=== PATIENT | male | born 1945 | race Caucasian/White ===

== ENCOUNTER 2016-10-02 15:10 | Emergency (ER) | payer MEDICAID, OTHER ==
[~2016-10-02] VITALS: Ht 185.4 cm; Wt 103.5 kg
[~2016-10-02 15:10] MED LIST: ACET1TAB40 PO; IBUP-1542 PO; LEVO750T8 PO
[2016-10-02 15:20] VITALS: Ht 185.4 cm; Wt 103.5 kg
[2016-10-02 19:29] LABS: ADD SCAN DIFF NO
[2016-10-02 19:31] LABS: BASOPHILS % 0.4 % (0.0-2.0); EOSINOPHILS # 0.3 10^3/ul (0.0-0.5); EOSINOPHILS % 3.3 % (0.0-7.0); HEMATOCRIT 40.7 % (42.0-52.0); HEMOGLOBIN 13.5 g/dl (14.0-18.0); LYMPHOCYTES # 2.3 10^3/ul (0.8-2.9); LYMPHOCYTES % 28.7 % (15.0-51.0); MEAN CORPUSCULAR HEMOGLOBIN 31.4 pg (29.0-33.0); MEAN CORPUSCULAR HGB CONC 33.2 g/dl (32.0-37.0); MEAN CORPUSCULAR VOLUME 94.7 fl (82.0-101.0); MEAN PLATELET VOLUME 9.2 fl (7.4-10.4); MONOCYTE # 0.9 10^3/ul (0.3-0.9); MONOCYTES % 11.3 % (0.0-11.0); NEUTROPHIL # 4.6 10^3/ul (1.6-7.5); NEUTROPHILS % 55.9 % (39.0-77.0); PLATELET COUNT 247 10^3/UL (140-415); RED CELL DISTRIBUTION WIDTH 12.5 % (11.5-14.5); WHITE BLOOD COUNT 8.2 10^3/ul (4.8-10.8)
[2016-10-02 19:47] LABS: INR 0.93; PROTIME 12.5 Sec (12.2-14.2)
--- NOTE | 2016-10-02 19:47 | RADRPT ---
PROCEDURE: US bilateral lower extremity veins. CLINICAL INDICATION: Bilateral leg pain and swelling. TECHNIQUE: Multiple longitudinal and transverse images of the bilateral lower extremity veins were obtained with henry scale and color Doppler imaging. The common femoral vein, femoral vein, and popl iteal vein were evaluated. 2D grayscale measurements with compression sonography, color Doppler, and pulsed Doppler with augmentation. COMPARISON: No prior studies are available for comparison. FINDINGS: The bilateral common femoral, femoral and popliteal veins are normally compressible throughout. Col or flow demonstrates normal filling of the vessels. Normal waveforms are visualized and there is no rmal response to augmentation. IMPRESSION: 1. No evidence of deep vein thrombosis involving either lower extremity. RPTAT: QQ .Steven Forbes MD, MD Date Time Electronically viewed and signed by .Steven Forbes MD, on 10/02/2016 19:47 .R/
[2016-10-02 19:51] LABS: ALANINE AMINOTRANSFERASE 27 IU/L (13-69); ALBUMIN 4.5 g/dl (3.3-4.9); ALKALINE PHOSPHATASE 46 IU/L (42-121); ANION GAP 21 (8-16); ASPARTATE AMINO TRANSFERASE 19 IU/L (15-46); BILIRUBIN,INDIRECT 0.3 mg/dl (0-1.1); BILIRUBIN,TOTAL 0.3 mg/dl (0.2-1.3); BLOOD UREA NITROGEN 17 mg/dl (7-20); CALCIUM 9.1 mg/dl (8.4-10.2); CARBON DIOXIDE 25 mmol/L (21-31); CHLORIDE 103 mmol/L (97-110); CREATININE 0.86 mg/dl (0.61-1.24); GLUCOSE 81 mg/dl (70-220); POTASSIUM 4.2 mmol/L (3.5-5.1); SODIUM 145 mmol/L (135-144); TOTAL PROTEIN 7.5 g/dl (6.1-8.1)
[2016-10-02 19:59] LABS: B-TYPE NATRIURETIC PEPTIDE 112 PG/ML (0-125)
[2016-10-02 20:09] LABS: TROPONIN-I < 0.012 ng/ml (0.00-0.12)
[2016-10-02 20:17] LABS: PARTIAL THROMBOPLASTIN TIME 26.7 Sec (25.0-35.0)
[2016-10-02 20:24] VITALS: BP 118/80
[2016-10-02] MEDS ORDERED: CEPH-443 PO (20:40)
[2016-10-02] MEDS ORDERED: BACTRIM PO (20:40)
--- NOTE | 2016-10-02 21:56 | ERD ---
ER Documentation Chief Complaint Date/Time DATE: 10/02/16 TIME: 21:49 Chief Complaint BILATERAL LOWER EXTREMITIES SWELLIING HPI This is a very pleasant 70-year-old male with a known history of COPD quit tobacco 2 years prior to arrival, presented to the emergency department with 8 days of lower extremity swelling. Indicates he has not had any recent travel or prolonged immobilization. He indicates he has shortness of breath with exertion but also indicates this is been present for several years due to his COPD and does not feel different in nature from his normal shortness of breath. He indicates the swelling of his lower extremities is worse at the end of the day and he will notice his sock duran indented on his lower extremities. He denies any muscular cramping or tenderness of his calves. He has no chest pain or pressure that radiates to the neck arm back or jaw. He denies any recent hospitalizations. The patient also is concerned that he could have an infection of his foot on the left-hand side as he went to a nail salon and he feels that they did not use sterile instruments. He did notice some redness after the pedicure over the left big toe which began 2 days ago. He has had no fevers or shaking or chills ROS All systems reviewed and are negative except as per history of present illness. Medications Home Meds Active Scripts Cephalexin* (Keflex*) 500 Mg Capsule, 500 MG PO Q6 for 10 Days, #40 CAP Prov:SHANTAL TURNER 10/02/16 Trimethoprim-Sulfamethoxazole* (Bactrim*) 400-80 Mg Tab, 1 TAB PO BID, #20 TAB Prov:SHANTAL TURNER 10/02/16 Acetaminophen-Codeine* (Acetaminophen-Cod #3*) 300-30 Mg Tab, 1 TAB PO Q4H Y for PAIN LEVEL 6-10, #15 TAB Prov:CHO,NED 10/01/14 Ibuprofen* (Motrin*) 600 Mg Tab, 600 MG PO Q6H Y for PAIN LEVEL 1-5, #15 TAB Prov:CHO,NED 10/01/14 Levofloxacin* (Levofloxacin*) 750 Mg Tablet, 750 MG PO DAILY for 7 Days, TAB Prov:CHO,NED 10/01/14 PMhx/Soc Hx Alcohol Use: No Hx Substance Use: No Hx Tobacco Use: No Smoking Status: Former smoker Physical Exam Vitals Vital Signs Date Time Temp Pulse Resp B/P Pulse Ox O2 Delivery O2 Flow Rate FiO2 10/02/16 20:24 118/80 10/02/16 15:20 98.4 101 18 105/61 96 Physical Exam Constitutional:Well-developed. Well-nourished. HEENT:Normocephalic. Atraumatic.Pupils were equal round reactive to light. Moist mucous membranes.No tonsillar exudates. Neck: No nuchal rigidity. No lymphadenopathy. No posterior cervical spine tenderness or step-offs. Respiratory: Not using accessory muscles of respiration.Lungs were clear to auscultation bilaterally. No rhonchi. No rales. No wheezing. Cardiovascular: Regular rate regular rhythm.No murmurs. No rubs were appreciated.S1, S2 normal. Distal pulses are palpable 2+ bilaterally. GI: Abdomen was soft. Nontender. Non Distended. No pulsatile abdominal masses or bruits. No rebound. No guarding. Bowel sounds were present and normal. Muscle skeletal: Full range of motion of both the upper and lower extremities bilaterally.Normal muscle tone.No assymetrical calf tenderness with 1+ pitting edema the bilateral lower extremities Skin: No petechia, no purpura. No lesions on the palms or the soles of the feet. No maculopapular rash. Onychomycosis of bilateral toenails with mild erythremia and warmth surrounding the dorsal aspect of the left big toe. No fluctuance no induration of the bilateral feet and pain not out of proportion to physical exam NEURO: Patient was alert, awake, orientated x3.No facial droop. Gait observed and normal with no ataxia.Speech had regular rate and rhythm. No focal neurological deficits. Result Diagram: 10/02/16191910/02/161919 Results 24 hrs Laboratory Tests Test 10/02/16 19:20 White Blood Count 8.210^3/ul Red Blood Count 4.3010^6/ul Hemoglobin 13.5g/dl Hematocrit 40.7% Mean Corpuscular Volume 94.7fl Mean Corpuscular Hemoglobin 31.4pg Mean Corpuscular Hemoglobin Concent 33.2g/dl Red Cell Distribution Width 12.5% Platelet Count 11347^3/UL Mean Platelet Volume 9.2fl Neutrophils % 55.9% Lymphocytes % 28.7% Monocytes % 11.3% Eosinophils % 3.3% Basophils % 0.4% Nucleated Red Blood Cells % 0.0/100WBC Neutrophils # 4.610^3/ul Lymphocytes # 2.310^3/ul Monocytes # 0.910^3/ul Eosinophils # 0.310^3/ul Basophils # 0.010^3/ul Nucleated Red Blood Cells # 0.010^3/ul Prothrombin Time 12.5Sec Prothrombin Time Ratio 1.0 INR International Normalized Ratio 0.93 Activated Partial Thromboplast Time 26.7Sec Sodium Level 145mmol/L Potassium Level 4.2mmol/L Chloride Level 103mmol/L Carbon Dioxide Level 25mmol/L Anion Gap 21 Blood Urea Nitrogen 17mg/dl Creatinine 0.86mg/dl Glucose Level 81mg/dl Calcium Level 9.1mg/dl Total Bilirubin 0.3mg/dl Direct Bilirubin 0.00mg/dl Indirect Bilirubin 0.3mg/dl Aspartate Amino Transf (AST/SGOT) 19IU/L Alanine Aminotransferase (ALT/SGPT) 27IU/L Alkaline Phosphatase 46IU/L Troponin I < 0.012ng/ml B-Type Natriuretic Peptide 112PG/ML Total Protein 7.5g/dl Albumin 4.5g/dl Globulin 3.00g/dl Albumin/Globulin Ratio 1.50 Procedures/MDM This patient presented to the emergency department with bilateral pitting edema. The patient no physical exam findings to suggest congestive heart failure and his BNP was normal. 12 Lead EKG tracing ordered and reviewed by myself showed: Normal sinus rhythm of 86 bpm and no arrhythmia. AL interval normal. Premature supraventricular complexes QRS duration normal. RSR prime pattern in lead V1 and V2 with an incomplete right bundle branch block No ST segment elevation No ST segment depression. No changes consistent with acute ischemia. The patient had no electrolyte abnormalities. There is no leukocytosis. I did obtain a venous duplex ultrasound of the bilateral lower extremities which showed no evidence of a deep vein thrombosis The patient also presented to the emergency department with a spreading erythematous superficial infection of the skin and subcutaneous tissues of his left foot after a pedicure. My differential diagnosis included but was not limited to necrotizing fasciitis, lymphangitis, thrombophlebitis, deep vein thrombosis, allergic reaction, neoplasm, gout or abscess. Predisposing factors of the progressive spread of erythema, warmth, pain and tenderness was considered such as lymphedema, tinea pedis, open wounds, prior trauma or surgery, pre-existing skin lesion (furuncle), retained foreign body, injection drug use or vascular or immune compromise. The patient was placed on antibiotics to cover Staphylococcus aureus, including resistant strains such as community-acquired methicillin-resistant S. aureus. The patient was at home with a prescription of Bactrim and Keflex. He was also given follow-up with the clinic physician Dr. Zamora for reevaluation. I also explained to the patient to monitor his salt intake which could exacerbate the peripheral edema. He had no signs of arterial or venous insufficiency at this time for an acute life-threatening etiology causing the bilateral pitting edema. The patient was discharged home in fair condition. They were instructed to return to the emergency department at any time if there was any worsening of their condition. The patient stated they would follow up with their PCP in the next 24-48 hours to initiate a suitable medication regimen under the care of their PCP as well as to allow their PCP to monitor any drug reactions. The patient was discharged home with prescriptions after they gave informed consent to the new medication. They were also fully informed by myself on the adverse effects and adverse drug interactions in order to provide adequate safeguards to prevent possible adverse reactions to medications. Departure Diagnosis: Primary Impression: Edema, peripheral Additional Impression: Cellulitis of great toe of left foot Condition: Fair Patient Instructions: Cellulitis, Peripheral Edema, Bilateral SHANTAL TURNER Oct 02, 2016 21:55
== END 2016-10-02 21:00 | disposition home or self-care (01) ==
LOC: E/R 15:10
DX: R60.0 Localized edema (principal); L03.116 Cellulitis of left lower limb; J44.9 Chronic obstructive pulmonary disease, unspecified; R06.02 Shortness of breath; Z87.891 Personal history of nicotine dependence
CPT/HCPCS: 80053; 83880; 84484; 85025; 85610; 85730; 93005; 93970; Z7502

== ENCOUNTER 2018-05-06 17:10 | Emergency (ER) | payer MEDICARE, OTHER ==
[~2018-05-06] VITALS: Ht 185.4 cm; Wt 99.0 kg
[~2018-05-06 17:10] MED LIST changes: -ACET1TAB40 PO; +ALBU8.5H8 INH; +PRED20TA PO; +TIOT18CA INHALATION
[2018-05-06 17:13] VITALS: BP 118/59; Ht 185.4 cm; Wt 99.0 kg
[2018-05-06] MEDS ORDERED: LEVALBUTEROL (NEB) 0.63 MG/3 ML AMP INH STA (20:30)
[2018-05-06] MEDS ORDERED: IPRATROPIUM (NEB) 0.5 MG/2.5 ML AMP NEB STA (20:30)
[2018-05-06 21:34] VITALS: PULSE 83; RESP 24
[2018-05-06] MEDS ORDERED: BECL10.6 IH (21:48)
--- NOTE | 2018-05-06 21:50 | ERD ---
ER Documentation Chief Complaint Chief Complaint pt bib self with c/o cough, was on antibx still not "feeling better" ROS All systems reviewed and are negative except as per history of present illness. Medications Home Meds Active Scripts Beclomethasone Dipropionate (Qvar Redihaler (40 MCG)) 10.6 Gm Hfa.aeroba, 10.6 GM IH BID for cough/shortness of breath, #1 INH Prov:FRANCISCO SCHMITZ DO 05/06/18 Prednisone* (Prednisone*) 20 Mg Tab, 30 MG PO DAILY for 5 Days, TAB Prov:FRANCISCO LANDAVERDE MD 04/27/18 Prednisone* (Prednisone*) 20 Mg Tab, 20 MG PO DAILY for 5 Days, TAB Prov:FRANCISCO LANDAVERDE MD 04/27/18 Prednisone* (Prednisone*) 20 Mg Tab, 40 MG PO DAILY for 5 Days, TAB Prov:FRANCISCO LANDAVERDE MD 04/27/18 Levofloxacin* (Levofloxacin*) 750 Mg Tablet, 750 MG PO DAILY for 7 Days, TAB Prov:FRANCISCO LANDAVERDE MD 04/27/18 Albuterol Sulfate* (Proair HFA*) 8.5 Gm Hfa.aer.ad, 2 PUFF INH Q4, #1 INHALER Prov:FRANCISCO LANDAVERDE MD 04/27/18 Tiotropium [place]* (Spiriva*) 18 Mcg Cap.w.dev, 2 CAP INHALATION DAILY, #30 CAP Prov:FRANCISCO LANDAVERDE MD 04/27/18 Ibuprofen* (Motrin*) 600 Mg Tab, 600 MG PO Q6H PRN for PAIN LEVEL 1-5, #15 TAB Prov:NED CHERRY 10/01/14 Allergies Allergies: Coded Allergies: No Known Allergy (Unverified , 04/26/18) PMhx/Soc History of Surgery: Yes (appendectomy, tonsillectomy) Hx Respiratory Disorders: Yes (COPD, emphyzema) Hx Alcohol Use: No Hx Substance Use: No Hx Tobacco Use: No Smoking Status: Never smoker Physical Exam Vitals Vital Signs Date Temp Pulse Resp B/P (MAP) Pulse Ox O2 O2 Flow FiO2 Time Delivery Rate 05/06/18 83 24 99 Room Air 21:34 05/06/18 84 20 96 21 21:08 05/06/18 98.7 101 20 118/59 94 17:13 (78) Physical Exam Const: No acute distress Head: Atraumatic Eyes: Normal Conjunctiva ENT: Normal External Ears, Nose and Mouth. Neck: Full range of motion. No meningismus. Resp: Clear to auscultation bilaterally Cardio: Regular rate and rhythm, no murmurs Abd: Soft, non tender, non distended. Normal bowel sounds Skin: No petechiae or rashes Back: No midline or flank tenderness Ext: No cyanosis, or edema Neur: Awake and alert Psych: Normal Mood and Affect Results 24 hrs Current Medications Medications Dose Sig/Sohan Start Time Status Last (Trade) Ordered Route PRN Stop Time Admin Dose Reason Admin Ipratropium 0.5 mg ONCE STAT 05/06/18 DC 05/06/18 [place] NEB 20:30 21:07 (Atrovent 05/06/18 20:32 0.02% (Neb)) 0.63 mg ONCE STAT 05/06/18 DC 05/06/18 Levalbuterol INH 20:30 21:07 (Xopenex 05/06/18 20:32 Neb) Departure Diagnosis: Primary Impression: Cough Condition: Fair Patient Instructions: COPD: Using Inhalers, Cough, Chronic, Uncertain Cause, (Adult) Referrals: [facility] YOU HAVE RECEIVED A MEDICAL SCREENING EXAM AND THE RESULTS INDICATE THAT YOU DO NOT HAVE A CONDITION THAT REQUIRES URGENT TREATMENT IN THE EMERGENCY DEPARTMENT. FURTHER EVALUATION AND TREATMENT OF YOUR CONDITION CAN WAIT UNTIL YOU ARE SEEN IN YOUR DOCTORS OFFICE WITHIN THE NEXT 1-2 DAYS. IT IS YOUR RESPONSIBILITY TO MAKE AN APPOINTMENT FOR FOLOW-UP CARE. IF YOU HAVE A PRIMARY DOCTOR --you should call your primary doctor and schedule an appointment IF YOU DO NOT HAVE A PRIMARY DOCTOR YOU CAN CALL OUR PHYSICIAN REFERRAL HOTLINE AT IF YOU CAN NOT AFFORD TO SEE A PHYSICIAN YOU CAN CHOSE FROM THE FOLLOWING [facility] [address] [facility]. [facility] [address] [facility] [address] [facility] [address] [facility]. [facility] [address] [facility]. [facility]. [address] Additional Instructions: Call your primary care doctor TOMORROW for an appointment during the next 1-2 days.See the doctor sooner or return here if your condition worsens before your appointment time. Follow up with director digital advertising FRANCISCO SCHMITZ DO May 06, 2018 21:50
== END 2018-05-06 22:02 | disposition home or self-care (01) ==
LOC: FTE 17:10
DX: R05 Cough (principal); J44.9 Chronic obstructive pulmonary disease, unspecified
CPT/HCPCS: 94664